=== PATIENT | female | born 1955 | race Caucasian/White ===

== ENCOUNTER 2018-03-10 14:01 | Inpatient (IN) | payer BC ==
--- OUTSIDE RECORDS SUMMARY | 2018-03-10 14:09 | XMS REPORT | Clinical Summary ---
:1955 Author Organization [facility] Address [address] [place] [address] Care Team Providers Name Role Phone Maddi Schwab MD Primary Care Provider Allergies No Known Allergies Current Medications Prescription Sig. Disp. Refills Start Date End Date Status [id number] Take 1 tablet by Active ein (CENTRUM SILVER mouth every morning. WOMEN) 8 mg iron-400 mcg-300 mcg tablet calcium Take 2 tablets by Active carbonate-vitamin D3 mouth daily with (CALCIUM 600 + D,3,) 600 breakfast. mg(1,500mg) -400 unit per tablet fish oil-dha-epa Take 2 capsules by Active 1,200144-216 mg capsule mouth every morning. Active Problems Problem Noted Date Syncope 03/26/2017 Encounters Date Type Specialty Care Team Description 03/26/2017 - Emergency General Surgery Ben Gibson MD Syncope, unspecified syncope type (Primary Dx); 03/28/2017 Piyush-Deepali Beasley, Hypokalemia Pepe Casey, DO after 03/09/2017 Immunizations Name Dates Previously Given Next Due Tdap 12/19/2016 Zoster 12/19/2016 Family History Medical History Relation Name Comments COPD Brother Cancer Father Lung & prostate Diabetes Father Hypertension Father Bone cancer Maternal Grandfather Bipolar disorder Mother Prostate cancer Paternal Grandfather Relation Name Status Comments Brother Father Maternal Grandfather (Age 74) Mother Alive Paternal Grandfather (Age 73) Social History Tobacco Use Types Packs/Day Years Used Date Never Smoker Alcohol Use Drinks/Week oz/Week Comments Yes 1 Cans of beer 0.6 Sex Assigned at Date Recorded Not on file Last Filed Vital Signs Vital Sign Reading Time Taken Blood Pressure 153/83 03/28/2017 6:59 AM COUNTER SERVER Pulse 82 03/28/2017 8:01 AM COUNTER SERVER Temperature 36.7 C (98.1 F) 03/28/2017 12:16 AM COUNTER SERVER Respiratory Rate 19 03/28/2017 6:59 AM COUNTER SERVER Oxygen Saturation 98% 03/28/2017 6:59 AM COUNTER SERVER Inhaled Oxygen Concentration - - Weight 68 kg (150 lb) 03/26/2017 5:00 PM COUNTER SERVER Height 157.5 cm (5' 2") 03/26/2017 5:00 PM COUNTER SERVER Body Mass Index 27.44 03/26/2017 5:00 PM COUNTER SERVER Plan of Treatment Health Maintenance Due Date Last Done Comments BREAST CANCER SCREENING 01/16/2006 COLON CANCER SCREENING 01/16/2006 SHINGRIX VACCINE (#1) 01/16/2006 INFLUENZA VACCINE 12/20/2017 CERVICAL CANCER SCREENING 12/21/2019 12/20/2016 ZOSTER VACCINE Completed 12/19/2016 Procedures Procedure Name Priority Date/Time Associated Comments Diagnosis ECHOCARDIOGRAM 2D Routine 03/27/2017 1:35 Results for this COMPLETE W MMODE PM COUNTER SERVER procedure are in SPECTRAL COLOR DOPPLER the results (03494) section. ZZESTIMATED GFR Routine 03/27/2017 9:52 Results for this AM COUNTER SERVER procedure are in the results section. BASIC METABOLIC PANEL Routine 03/27/2017 9:52 Results for this AM COUNTER SERVER procedure are in the results section. CT HEAD WO CONTRAST Routine 03/27/2017 9:02 Results for this AM COUNTER SERVER procedure are in the results section. SERUM ELECTROPHORESIS Routine 03/27/2017 1:14 Results for this AM COUNTER SERVER procedure are in the results section. KASHIF Routine 03/27/2017 1:14 Results for this AM COUNTER SERVER procedure are in the results section. HEMOGLOBIN A1C Routine 03/27/2017 1:14 Results for this AM COUNTER SERVER procedure are in the results section. THYROID STIMULATING Routine 03/27/2017 1:14 Results for this HORMONE AM COUNTER SERVER procedure are in the results section. TROPONIN Timed 03/27/2017 1:14 Results for this AM COUNTER SERVER procedure are in the results section. ECG ED PRELIMINARY Routine 03/27/2017 12:10 Results for this INTERPRETATION AM COUNTER SERVER procedure are in the results section. TROPONIN Timed 03/26/2017 9:32 Results for this PM COUNTER SERVER procedure are in the results section. URINALYSIS SCREEN AND STAT 03/26/2017 8:04 Results for this MICROSCOPY, WITH REFLEX PM COUNTER SERVER procedure are in TO CULTURE the results section. URINE CULTURE STAT 03/26/2017 8:04 Results for this PM COUNTER SERVER procedure are in the results section. XR CHEST 2 VW STAT 03/26/2017 6:45 Results for this PM COUNTER SERVER procedure are in the results section. ZZESTIMATED GFR STAT 03/26/2017 5:31 Results for this PM COUNTER SERVER procedure are in the results section. MAGNESIUM LEVEL STAT 03/26/2017 5:31 Results for this PM COUNTER SERVER procedure are in the results section. B NATRIURETIC PEPTIDE STAT 03/26/2017 5:31 Results for this PM COUNTER SERVER procedure are in the results section. TROPONIN STAT 03/26/2017 5:31 Results for this PM COUNTER SERVER procedure are in the results section. PARTIAL THROMBOPLASTIN STAT 03/26/2017 5:31 Results for this TIME (PTT) PM COUNTER SERVER procedure are in the results section. PROTHROMBIN TIME WITH STAT 03/26/2017 5:31 Results for this INR PM COUNTER SERVER procedure are in the results section. HC COMPLETE BLD COUNT STAT 03/26/2017 5:31 Results for this W/AUTO DIFF PM COUNTER SERVER procedure are in the results section. BASIC METABOLIC PANEL STAT 03/26/2017 5:31 Results for this PM COUNTER SERVER procedure are in the results section. ECG 12-LEAD STAT 03/26/2017 5:23 Results for this PM COUNTER SERVER procedure are in the results section. POC GLUCOSE Routine 03/26/2017 5:18 Results for this PM COUNTER SERVER procedure are in the results section. after 03/09/2017 Results Echocardiogram complete w contrast and 3D if needed (03/27/2017 1:35 PM) BSA 1.72 m2 [facility] Velocity Ratio (V1/V2) 0.75 m/s [facility] IVS,d 0.75 0.6 - 1.2 cm [facility] EF 59.45 % [facility] LVPWD,d 0.71 cm [facility] AoV Mean PG 3.44 mmHg [facility] AV LVOT peak gradient 3.68 mmHg [facility] MV valve area p 1/2 method 8.10 cm2 [facility] E/A ratio 1.28 [facility] E wave decelartion time 165.16 msec [facility] LVOT Diam,S 1.93 cm [facility] LVOT area 2.92 cm2 [facility] LVOT Vmax 0.96 m/s [facility] LVOT VTI 0.20 m [facility] AoV Peak PG 6.57 mmHg [facility] MV Peak E Basilio 0.78 m/s [facility] MV stenosis pressure 1/2 time 27.17 ms [facility] MV Peak A Basilio 0.61 m/s [facility] LV Vol,s A2C 26.04 mL [facility] LV Systolic Volume Index 15.14 mL/m2 [facility] LV Vol,d A2C 80.70 mL [facility] LV Diastolic Volume Index 46.92 mL/m2 [facility] AoV Area, Vmax 2.20 cm2 [facility] AoV Area, VTI 2.24 cm2 [facility] AoV Vmax 1.28 m/s [facility] LV,d 3.86 cm [facility] LV,s 2.66 cm [facility] LV Vol,d A4C 61.86 ml [facility] LV Vol,s A4C 26.45 ml [facility] RVSP (TR) 20.11 mmHg [facility] TR Vpeak 1.94 mm/s [facility] MV E A ratio 1.27 mmHg [facility] TR pk grad 15.11 mmHg [facility] RVSP 20.11 mmHg [facility] LV SYS VOL 26.09 ml [facility] LV TUCKER VOL 64.34 ml [facility] LA diam s 3.00 cm [facility] LA Vol MOD A4C 35.26 ml [facility] LV SV Teich 2D 38.25 ml [facility] LVOT SI 34.87 ml/m2 [facility] AoV Cusp sep 1.67 [facility] Aortic Root 3.10 [facility] AoV Vmn 0.89 [facility] IVS s 2D 1.32 [facility] LA Ao Ratio Mmode 0.98 [facility] D E excurs 2.30 [facility] E f slope 0.14 [facility] E prime lat 0.09 [facility] E minnie sept 0.07 [facility] PV acc T slope 6.80 [facility] PV AT 83.04 msec [facility] AoV VTI 0.26 m [facility] LV EF,A2C 67.73 % [facility] LV EF,A4C 57.24 % [facility] LV EF,BP 62.96 % [facility] [place],d A2C 6.72 cm [facility] [place],d A4C 7.47 cm [facility] [place],s A2C 5.62 cm [facility] [place],s A4C 5.05 cm [facility] LV SV,A2C 54.65 % [facility] LV SV,A4C 35.41 % [facility] LV Vol,d BP 74.30 ml [facility] LV Vol,s BP 27.52 nl [facility] LVOT Vmn 0.64 [facility] Pt Size 157.48 [facility] Pt Wt 68.04 [facility] LVOT mean grad 1.89 mmHg [facility] LVPW s PLAX 1.10 cm [facility] MV Decel slope 4.71 m/s2 [facility] Narrative Performed At The left ventricle chamber size is normal. [facility] Right ventricular size is normal. No pericardial effusion The pulmonic valve appears normal. No evidence of pulmonary valve stenosis. Left Ventricular ejection fraction is 55 - 60%. Performing Organization Address City/[facility] Phone Number [facility] [address] [place] [address] Estimated GFR (03/27/2017 9:52 AM)Only the most recent of2 resultswithin the time period is included. GFR Non Af Amer >90 mL/min/1.73 m2 [facility] DEPARTMENT OF PATHOLOGY AND GENOMIC MEDICINE GFR Af Amer >90 mL/min/1.73 m2 [facility] DEPARTMENT OF Comment: PATHOLOGY AND GENOMIC Chronic kidney disease: <60 mL/min/1.73m2 MEDICINE Kidney failure: <15 mL/min/1.73m2 The estimated GFR is calculated from the IDMS-traceable Modification of Diet in Renal Disease Equation. The accuracy of the calculation is poor when the creatinine is normal. Calculated values >90 mL/min/1.73m2 are not reported. This equation has not been validated in children (<18 years), women, the elderly (>70 years), or ethnic groups other than Caucasians and Americans. Specimen Plasma specimen Performing Organization Address City/[facility]/Zipcode Phone Number [facility] DEPARTMENT OF PATHOLOGY AND [address] [place] [address] [address] [place] [address] [facility] MEDICINE Basic metabolic panel (03/27/2017 9:52 AM)Only the most recent of2 resultswithin the time period is included. Sodium 141 135 - 148 mEq/L [facility] DEPARTMENT OF PATHOLOGY AND GENOMIC [facility] Potassium 3.5 3.5 - 5.0 mEq/L [facility] DEPARTMENT OF PATHOLOGY AND GENOMIC MEDICINE Chloride 105 98 - 112 mEq/L [facility] DEPARTMENT OF PATHOLOGY AND GENOMIC MEDICINE CO2 25 24 - 31 mEq/L [facility] DEPARTMENT OF PATHOLOGY AND GENOMIC MEDICINE Anion gap 11 7 - 15 mEq/L [facility] DEPARTMENT OF Comment: PATHOLOGY AND GENOMIC Starting from August , anion gap calculation MEDICINE no longer incorporates potassium. Please note the change. BUN 6 (L) 8 - 23 mg/dL [facility] DEPARTMENT OF PATHOLOGY AND GENOMIC MEDICINE Creatinine 0.6 0.5 - 0.9 mg/dL [facility] DEPARTMENT OF PATHOLOGY AND GENOMIC [facility] Glucose 123 (H) 65 - 99 mg/dL [facility] OF PATHOLOGY AND GENOMIC [facility] Calcium 8.9 8.8 - 10.2 mg/dL [facility] DEPARTMENT OF PATHOLOGY AND GENOMIC MEDICINE Specimen Plasma specimen Performing Organization Address City/State/Zipcode Phone Number [facility] DEPARTMENT OF PATHOLOGY AND [address] [place] [address] [facility] CT Head Wo Contrast (03/27/2017 9:02 AM) Narrative Performed At EXAMINATION:CT HEAD WO CONTRAST [facility] CT IMAGING WAS PERFORMED WITH ITERATIVE RECONSTRUCTION TECHNIQUE AND/OR AUTOMATED EXPOSURE CONTROL TO REDUCE RADIATION DOSE. CLINICAL HISTORY:syncope COMPARISON:None. FINDINGS: 1.There is no acute abnormality demonstrated. Specifically there is no hemorrhage, mass effect or acute infarction. 2. There are minimal if any nonspecific cerebral white matter microvascular changes. There is mild to moderate cerebral cortical volume loss and cerebellar volume loss. There is minimal atherosclerotic calcification the distal internal carotid arteries. 3.There is minimal mucosal thickening in the ethmoid and maxillary sinus IMPRESSION: No acute abnormality. [facility]-[id number] Procedure Note Interface, Radiology Results Incoming - 03/27/2017 9:37 AM COUNTER SERVER EXAMINATION: CT HEAD WO CONTRAST CT IMAGING WAS PERFORMED WITH ITERATIVE RECONSTRUCTION TECHNIQUE AND/OR AUTOMATED EXPOSURE CONTROL TO REDUCE RADIATION DOSE. CLINICAL HISTORY: syncope COMPARISON: None. FINDINGS: 1. There is no acute abnormality demonstrated. Specifically there is no hemorrhage, mass effect or acute infarction. 2. There are minimal if any nonspecific cerebral white matter microvascular changes. There is mild to moderate cerebral cortical volume loss and cerebellar volume loss. There is minimal atherosclerotic calcification the distal internal carotid arteries. 3. There is minimal mucosal thickening in the ethmoid and maxillary sinus IMPRESSION: No acute abnormality. [facility]-[id number] Performing Organization Address City/[facility]/Zipcode Phone Number [facility] [address] [place] [address] Troponin (03/27/2017 1:14 AM)Only the most recent of3 resultswithin the time period is included. Troponin <0.300 0.000 - 0.300 ng/mL [facility] DEPARTMENT OF Comment: PATHOLOGY AND GENOMIC 0.30 - 1.49 ng/mlMay indicate increased risk of acute MEDICINE coronary syndrome. >=1.5 ng/mlConsistent with acute myocardial infarction. The diagnostic value of a single normal or non-diagnostic result is questionable.Serial samples at 2-6 hour intervals are required to rule out acute myocardial injury. Specimen Plasma specimen Performing Organization Address [facility] Phone Number [facility] DEPARTMENT OF PATHOLOGY AND [address] [place] [address] [place] [address] [facility] KASHIF (03/27/2017 1:14 AM) KASHIF screen Not Detected Not-Detected [facility] DEPARTMENT OF PATHOLOGY AND GENOMIC MEDICINE Specimen Blood Performing Organization Address [facility] Phone Number [facility] DEPARTMENT OF PATHOLOGY AND [address] [place] [address] [facility] Thyroid stimulating hormone (03/27/2017 1:14 AM) TSH 4.00 0.27 - 4.20 uIU/mL [facility] DEPARTMENT OF PATHOLOGY AND GENOMIC MEDICINE Specimen Plasma specimen Performing Organization Address [facility] Phone Number [facility] DEPARTMENT PATHOLOGY AND [address] [place] [address] [place] [address] [facility] Serum electrophoresis (03/27/2017 1:14 AM) Protein 6.6 6.3 - 8.3 g/dL [facility] DEPARTMENT OF Comment: PATHOLOGY AND GENOMIC [place] 4.6-7.0 g/dL MEDICINE 1 week 4.4-7.6 g/dL 7 months-1year5.1-7.3 g/dL 1-2 years5.6-7.5 g/dL >3 years6.0-8.0 g/dL 18-150 6.3-8.3 g/dL SPE albumin 4.25 4.00 - 5.30 g/dL [facility] DEPARTMENT OF PATHOLOGY AND GENOMIC MEDICINE SPE alpha 1 0.09 (L) 0.10 - 0.25 g/dL [facility] DEPARTMENT OF PATHOLOGY AND GENOMIC MEDICINE SPE alpha 2 0.73 0.58 - 0.84 g/dL [facility] DEPARTMENT OF PATHOLOGY AND GENOMIC MEDICINE SPE beta 0.86 0.50 - 1.10 g/dL [facility] DEPARTMENT OF PATHOLOGY AND GENOMIC MEDICINE SPE gamma 0.67 0.60 - 1.30 g/dL [facility] DEPARTMENT OF PATHOLOGY AND GENOMIC MEDICINE SPE extended See CommentComment: An [facility] DEPARTMENT OF interpretation essentially normal PATHOLOGY AND GENOMIC serum protein study. MEDICINE SPE interpretation See CommentComment: [facility] DEPARTMENT OF José Miguel Garcia MD; PATHOLOGY AND GENOMIC Keshawn Gallagher, PhD; MEDICINE Jessica Bennett, PhD; Mayito Nava MD, PhD Specimen Serum Performing Organization Address City/[facility] Phone Number [facility] DEPARTMENT OF PATHOLOGY AND [address] [place] [address] [facility] MEDICINE Hemoglobin A1c (03/27/2017 1:14 AM) Hemoglobin A1C 5.5 4.0 - 6.0 % [facility] DEPARTMENT OF PATHOLOGY Comment: AND GENOMIC MEDICINE Less than 6% - Goal of therapy for Type II Diabetes Less than 7%-Goal of therapy for Type I Diabetes Less than 8%-Acceptable control for Type I or Type II Diabetes Greater than 8%-Unacceptable control; action indicated. (ADA94) Specimen Blood Performing Organization Address City/State/Zipcode Phone Number [facility] DEPARTMENT OF PATHOLOGY AND [address] [place] [address] [facility] ECG ED Preliminary Interpretation - NOT AN ORDER (03/27/2017 12:10 AM) Narrative Performed At Ben Gibson MD 03/27/2017 12:10 AM ECG ED Preliminary Interpretation - Not an Order Performed by: BEN GIBSON Authorized by: BEN GIBSON ECG reviewed by ED Physician in the absence of a slot key person: yes Interpretation: Interpretation: normal Rate: ECG rate:75 ECG rate assessment: normal Rhythm: Rhythm: sinus rhythm Ectopy: Ectopy: none QRS: QRS axis:Normal Conduction: Conduction: normal ST segments: ST segments:Normal T waves: T waves: normal Urinalysis screen and microscopy, with reflex to culture (03/26/2017 8:04 PM) Specimen site Clean catch [facility] DEPARTMENT OF PATHOLOGY AND GENOMIC MEDICINE Color, UA Colorless [facility] DEPARTMENT OF PATHOLOGY AND GENOMIC MEDICINE Appearance, UA Clear [facility] DEPARTMENT OF PATHOLOGY AND GENOMIC MEDICINE Specific gravity, UA 1.006 1.001 - 1.035 [facility] DEPARTMENT OF PATHOLOGY AND GENOMIC MEDICINE pH, UA 6.0 5.0 - 8.5 [facility] DEPARTMENT OF PATHOLOGY AND GENOMIC MEDICINE Protein, UA Negative Negative [facility] DEPARTMENT OF PATHOLOGY AND GENOMIC MEDICINE Glucose, UA 1+ (A) Negative [facility] DEPARTMENT OF PATHOLOGY AND GENOMIC MEDICINE Ketones, UA Negative Negative [facility] DEPARTMENT OF PATHOLOGY AND GENOMIC MEDICINE Bilirubin, UA Negative Negative [facility] DEPARTMENT OF PATHOLOGY AND GENOMIC MEDICINE Blood, UA Negative Negative [facility] DEPARTMENT OF PATHOLOGY AND GENOMIC MEDICINE Nitrite, UA Negative Negative [facility] DEPARTMENT OF PATHOLOGY AND GENOMIC MEDICINE Urobilinogen, UA Negative <2.0 [facility] DEPARTMENT OF PATHOLOGY AND GENOMIC MEDICINE Leukocyte esterase, UA Negative Negative [facility] DEPARTMENT OF PATHOLOGY AND GENOMIC MEDICINE Epithelial cells, UA Few /HPF [facility] DEPARTMENT OF PATHOLOGY AND GENOMIC MEDICINE WBC, UA 0-5 0 - 4 /HPF [facility] DEPARTMENT OF PATHOLOGY AND GENOMIC MEDICINE RBC, UA 0-5 0 - 2 /HPF [facility] DEPARTMENT OF PATHOLOGY AND GENOMIC MEDICINE Bacteria, UA None seen None seen [facility] DEPARTMENT OF PATHOLOGY AND GENOMIC MEDICINE Yeast, UA None seen [facility] DEPARTMENT OF PATHOLOGY AND GENOMIC MEDICINE Yeast with pseudohyphae, UA None seen [facility] DEPARTMENT OF PATHOLOGY AND GENOMIC MEDICINE Specimen Urine Performing Organization Address [facility] Phone Number [facility] DEPARTMENT OF PATHOLOGY AND [id number] [place] [address] [place] [address] [facility] MEDICINE Urine culture (03/26/2017 8:04 PM) Urine culture SEE COMMENTComment: Bacteriuria [facility] DEPARTMENT OF PATHOLOGY screen negative. AND GENOMIC MEDICINE Specimen Urine Performing Organization Address [facility] Phone Number [facility] DEPARTMENT OF PATHOLOGY AND [id number] [place] [address] [place] [address] [facility] XR Chest 2 Vw (03/26/2017 6:45 PM) Narrative Performed At EXAMINATION:XR CHEST 2 VW HM [facility] CLINICAL HISTORY:syncope COMPARISON:None IMPRESSION: Heart, mediastinum and lung davis are normal. [id number] Procedure Note Hm Interface, Radiology Results Incoming - 03/26/2017 6:49 PM COUNTER SERVER EXAMINATION: XR CHEST 2 VW CLINICAL HISTORY: syncope COMPARISON: None IMPRESSION: Heart, mediastinum and lung davis are normal. [id number] Performing Organization Address [facility] Phone Number [facility] [address] [place] [address] Partial thromboplastin time, activated (03/26/2017 5:31 PM) PTT 26.3 23.0 - 36.0 sec [facility] DEPARTMENT OF Comment: PATHOLOGY AND GENOMIC PTT therapeutic range for unfractionated heparin is MEDICINE 61.0-112.0 seconds which corresponds to Anti-Xa 0.3-0.7 U/ml. Specimen Blood Performing Organization Address [facility] Phone Number [facility] DEPARTMENT OF PATHOLOGY AND [address] [place] [address] [place] [address] [facility] Prothrombin time with INR (03/26/2017 5:31 PM) Prothrombin time 12.1 12.0 - 15.0 sec [facility] DEPARTMENT OF PATHOLOGY AND GENOMIC MEDICINE INR 0.9 [facility] DEPARTMENT OF Comment: PATHOLOGY AND GENOMIC The International Normalized Ratio (INR) is a therapeutic MEDICINE monitoring tool for patients who are stable on oral anticoagulant therapy. An INR of 2.0-3.0 is suggested for deep vein thrombosis/pulmonary embolism. Specimen Blood Performing Organization Address [facility] Phone Number [facility] PATHOLOGY AND [address] [place] [address] [place] [address] [facility] CBC with platelet and differential (03/26/2017 5:31 PM) WBC 7.33 4.50 - 11.00 k/uL [facility] DEPARTMENT OF PATHOLOGY AND GENOMIC MEDICINE RBC 4.78 4.20 - 5.50 m/uL [facility] DEPARTMENT OF PATHOLOGY AND GENOMIC MEDICINE HGB 13.1 12.0 - 16.0 g/dL [facility] DEPARTMENT OF PATHOLOGY AND GENOMIC MEDICINE HCT 39.5 37.0 - 47.0 % [facility] DEPARTMENT OF PATHOLOGY AND GENOMIC MEDICINE MCV 82.6 82.0 - 100.0 fL [facility] DEPARTMENT OF PATHOLOGY AND GENOMIC MEDICINE MCH 27.4 27.0 - 34.0 pg [facility] DEPARTMENT OF PATHOLOGY AND GENOMIC MEDICINE MCHC 33.2 31.0 - 37.0 g/dL [facility] DEPARTMENT OF PATHOLOGY AND GENOMIC MEDICINE RDW - SD 41.8 37.0 - 55.0 fL [facility] DEPARTMENT OF PATHOLOGY AND GENOMIC MEDICINE MPV 10.3 8.8 - 13.2 fL [facility] DEPARTMENT OF PATHOLOGY AND GENOMIC MEDICINE Platelet count 258 150 - 400 k/uL [facility] DEPARTMENT OF PATHOLOGY AND GENOMIC MEDICINE Nucleated RBC 0.00 /100 WBC [facility] DEPARTMENT OF PATHOLOGY AND GENOMIC MEDICINE Neutrophils 57.8 39.0 - 69.0 % [facility] DEPARTMENT OF PATHOLOGY AND GENOMIC MEDICINE Lymphocytes 30.4 25.0 - 45.0 % [facility] DEPARTMENT OF PATHOLOGY AND GENOMIC MEDICINE Monocytes 9.3 0.0 - 10.0 % [facility] DEPARTMENT OF PATHOLOGY AND GENOMIC MEDICINE Eosinophils 1.5 0.0 - 5.0 % [facility] DEPARTMENT OF PATHOLOGY AND GENOMIC MEDICINE Basophils 0.7 0.0 - 1.0 % [facility] DEPARTMENT OF PATHOLOGY AND GENOMIC MEDICINE Immature granulocytes 0.3Comment: 0.0 - 1.0 % [facility] DEPARTMENT OF "Immature PATHOLOGY AND GENOMIC granulocytes" MEDICINE (promyelocytes, myelocytes, metamyelocytes) Specimen Blood Performing Organization Address [facility] Phone Number [facility] DEPARTMENT OF PATHOLOGY AND [address] [place] [address] B natriuretic peptide (03/26/2017 5:31 PM) BNP 30 0 - 100 pg/mL [facility] DEPARTMENT OF PATHOLOGY AND GENOMIC MEDICINE Specimen Blood Performing Organization Address [facility] Phone Number [facility] DEPARTMENT OF PATHOLOGY AND [address] [place] [address] Magnesium level (03/26/2017 5:31 PM) Magnesium 2.0 1.6 - 2.4 mg/dL [facility] DEPARTMENT OF PATHOLOGY AND GENOMIC MEDICINE Specimen Plasma specimen Performing Organization Address [facility] Phone Number [facility] DEPARTMENT OF PATHOLOGY AND [address] [place] [address] ECG 12 lead (03/26/2017 5:23 PM) Ventricular rate 75 [facility] MUSE Atrial rate 75 [facility] MUSE FL interval 146 [facility] QRSD interval 92 [facility] QT interval 400 [facility] QTC interval 446 [facility] P axis 1 27 [facility] QRS axis 1 31 [facility] T wave axis 28 [facility] EKG impression Normal sinus rhythm-Normal ECG-No previous [facility] ECGs available- Performing Organization Address City/State/Zipcode Phone Number [facility] [address] [place] [address] POC glucose (03/26/2017 5:18 PM) POC glucose 131 (H) 65 - 99 mg/dL [facility] DEPARTMENT OF PATHOLOGY AND Comment: GENOMIC MEDICINE Meter ID: [id number] Porter Head: Claus Morse Performing Organization Address City/State/Zipcode Phone Number [facility] DEPARTMENT OF PATHOLOGY AND [address] [place] [address] GENOMIC MEDICINE after 03/09/2017 Insurance Payer Benefit Plan / Group Subscriber ID Type Phone Address BCBS BCBS CHOICE PPO/FEDERAL EMPL PPO xxxxxxxxxxxxxx PPO Home: [address] [phone] [place] [id number] [employer] Institutional Self 1955 Home: [address] [phone] [place] [id number]
--- OUTSIDE RECORDS SUMMARY | 2018-03-10 14:09 | XMS REPORT ---
:1955 Author Organization [facility] Address [address] [place] [address] [address]. [address] [place] [address] Care Team Providers Name Role Phone JADEN COATES Unavailable Unavailable Problems This patient has no known problems. Allergies, Adverse Reactions, Alerts This patient has no known allergies or adverse reactions. Medications This patient has no known medications. Encounters Start End Encounter Admission Attending Care Care Encounter Date/Time Date/Time Type Type Clinicians Facility Department ID 2016-12-27 2016-12-27 Outpatient C YOEL COATES USI [id number] 01:50:00 23:59:00 JADEN OSBORNE
[2018-03-10] MEDS ORDERED: ONDANSETRON 4 MG/2 ML VIAL ONE (15:29)
[2018-03-10] MEDS ORDERED: NA CHLORIDE 0.9% 1,000 ML ONE (15:29)
[2018-03-10] MEDS ORDERED: MORPHINE 4 MG/ML SYR ONE (15:29)
[2018-03-10 15:52] LABS: Absolute Lymphocytes (CBC) 1.5 K/uL (0.7-4.9); Absolute Monocytes 0.4 K/uL (0.1-1.3); Basophils % 0.4 % (0-1.3); Eosinophils % 0.2 % (0-4.4); Hematocrit 39.9 % (36.0-45.0); Lymphocytes % 12.6 % (15.3-44.8); MCH 27.6 pg (27.0-35.0); MCV 83.7 fL (80-100); MPV 9.1 fL (7.6-11.3); Monocytes % 3.2 % (3.3-12.3); RBC Red Blood Cell Count 4.76 M/uL (3.86-4.86)
[2018-03-10 15:54] LABS: Protime INR 0.97
[2018-03-10 16:12] LABS: ALT/SGPT 32 U/L (12-78); AST/SGOT 22 U/L (15-37); Alkaline Phosphatase 113 U/L (45-117); BUN Blood Urea Nitrogen 11 mg/dL (7-18); Bicarbonate 27 mmol/L (21-32); Bilirubin Direct < 0.1 mg/dL (0-0.2); Bilirubin Total 0.4 mg/dL (0.2-1.0); Glucose Level 143 mg/dL (74-106); Lipase 142 U/L (73-393); Magnesium 2.1 mg/dL (1.8-2.4); NT PRO-BNP 37 pg/mL (<125); Potassium 3.9 mmol/L (3.5-5.1); Protein, Total 7.9 g/dL (6.4-8.2); Sodium Level 139 mmol/L (136-145); Troponin (Emerg Dept Use Only) < 0.02 ng/mL (0.0-0.045)
--- NOTE | 2018-03-10 16:46 | RAD REPORT ---
EXAM DESCRIPTION: Tim Single View03/10/2018 3:53 pm CLINICAL HISTORY: abd pain COMPARISON: none FINDINGS: The lungs appear clear of acute infiltrate. The heart is normal size IMPRESSION: No acute abnormalities displayed
--- NOTE | 2018-03-10 16:46 | RAD REPORT ---
EXAM DESCRIPTION: CT - Abdomen Pelvis W Contrast - 03/10/2018 4:35 pm CLINICAL HISTORY: Abdominal pain/upper abdominal pain COMPARISON: August 2016 TECHNIQUE: Computed axial tomography of the abdomen pelvis was obtained. 100 cc Isovue-300 was admin istered intravenously. Oral contrast was not requested which limits evaluation of bowel. All CT scans are performed using dose optimization technique as appropriate and may include automated exposure control or mA/KV adjustment according to patient size. FINDINGS: Fatty infiltration liver is present. Gallbladder is been removed Spleen, pancreas, adrenal and kidneys appear unremarkable. There is no evidence of diverticulitis. The appendix is normal An adnexal mass is not seen IMPRESSION: No acute abnormality is displayed.
[2018-03-10] MEDS ORDERED: FENTANYL CITR 100 MCG/2 ML ONE (16:53)
[2018-03-10 18:19] LABS: Urine Blood TRACE (NEG); Urine Glucose NEGATIVE (NEG); Urine Protein NEGATIVE (NEG); Urine Specific Gravity 1.015 (1.005-1.030); Urine pH 7.5 (5.0-7.0)
[2018-03-10] MEDS ORDERED: ACETAMINOPHEN 500 MG TAB PO PRN (18:29)
[2018-03-10] MEDS ORDERED: MAGNESIUM HYDROXIDE 8% 30 ML PO PRN (18:29)
--- NOTE | 2018-03-10 18:33 | ER ---
Nurse's Notes [facility] Name: Calista Duggan Age: 63 yrs Sex: Female : 1955 Arrival Date: 03/10/2018 Time: 14:04 Bed 16 Private MD: Diagnosis: Abdominal and pelvic pain Presentation: 03/10 14:09 Presenting complaint: Patient states: "Last night my arm was hurting really bad, but I aj1 figured I pulled a muscle because I'm always lifting things and I felt really full and then this morning I felt better, but after I drank some coffee the pain has gotten worse and worse. I tried Pepto and Gingerale but it didn't help" Reports upper abdominal pain that radiates to the back. Reports N/V. Denies diarrhea. Transition of care: patient was not received from another setting of care. Onset of symptoms was March 09, 2018. Risk Assessment: Do you want to hurt yourself or someone else? Patient reports no desire to harm self or others. Initial Sepsis Screen: Does the patient meet any 2 criteria? No. Patient's initial sepsis screen is negative. Does the patient have a suspected source of infection? Yes: Acute abdominal pain. Care prior to arrival: None. 14:09 Method Of Arrival: Ambulatory aj1 14:09 Acuity: RUPA 3 aj1 Triage Assessment: 14:15 General: Appears in no apparent distress. uncomfortable, Behavior is calm, cooperative, aj1 appropriate for age. Pain: Complains of pain in right upper quadrant and left upper quadrant Pain radiates to back Pain currently is 9 out of 10 on a pain scale. Neuro: Level of Consciousness is awake, alert, obeys commands. Cardiovascular: Patient's skin is warm and dry. Respiratory: Airway is patent Respiratory effort is even, unlabored, Respiratory pattern is regular, symmetrical. GI: Reports upper abdominal pain. Historical: - Allergies: 14:14 No Known Allergies; aj1 - Home Meds: 14:14 multivitamin oral oral [Active]; Calcium Carbonate Oral [Active]; Fish Oil oral oral aj1 [Active]; - PMHx: 14:15 Diverticulitis; aj1 - PSHx: 14:14 None; aj1 - Immunization history:: Flu vaccine is not up to date. - Social history:: Smoking status: Patient/guardian denies using tobacco. - Ebola Screening: : Patient denies travel to an Ebola-affected area in the 21 days before illness onset. Screenin:20 Abuse screen: Denies threats or abuse. Nutritional screening: No deficits noted. rb1 Tuberculosis screening: No symptoms or risk factors identified. Fall Risk None identified. Assessment: 14:20 General: Appears uncomfortable, Behavior is calm, cooperative, Reports chills for fever rb1 for. Pain: Complains of pain in epigastric area, right upper quadrant and left upper quadrant Pain radiates to back Pain currently is 9 out of 10 on a pain scale. Pain: Complains of pain in left arm Neuro: Level of Consciousness is awake, alert, obeys commands, Oriented to person, place, time, situation. Cardiovascular: Capillary refill < 3 seconds is brisk in bilateral fingers. Respiratory: Airway is patent Respiratory effort is even, unlabored, Respiratory pattern is regular, symmetrical. GI: Bowel sounds present X 4 quads. Abd is soft Abdomen is tender to palpation in epigastric area Reports nausea, vomiting, since this morning. : No signs and/or symptoms were reported regarding the genitourinary system. Derm: Skin is pink, warm \\T\\ dry. 15:20 Reassessment: Patient appears in no apparent distress at this time. No changes from rb1 previously documented assessment. 16:10 Reassessment: Patient appears in no apparent distress at this time. Patient and/or em family updated on plan of care and expected duration. Pain level reassessed. Patient is alert, oriented x 3, equal unlabored respirations, skin warm/dry/pink. Patient states feeling better. Patient states symptoms have improved. 17:12 Reassessment: Patient appears in no apparent distress at this time. Patient and/or em family updated on plan of care and expected duration. Pain level reassessed. Patient is alert, oriented x 3, equal unlabored respirations, skin warm/dry/pink. rates pain 2/10 Patient states feeling better. 18:14 Reassessment: Patient appears in no apparent distress at this time. Patient and/or em family updated on plan of care and expected duration. Pain level reassessed. Patient is alert, oriented x 3, equal unlabored respirations, skin warm/dry/pink. rates pain 8/10, provider notified, new medication orders received. 19:02 Reassessment: Patient appears in no apparent distress at this time. Patient and/or jb4 family updated on plan of care and expected duration. Pain level reassessed. Patient is alert, oriented x 3, equal unlabored respirations, skin warm/dry/pink. reports decreased pain to 2/10. Patient states feeling better. 19:43 Reassessment: Patient appears in no apparent distress at this time. Patient and/or jb4 family updated on plan of care and expected duration. Pain level reassessed. Patient is alert, oriented x 3, equal unlabored respirations, skin warm/dry/pink. Report called To LUIZA Quintanilla. Vital Signs: 14:15 BP 141 / 80; Pulse 59; Resp 20; Temp 97.2; Pulse Ox 100% on R/A; Weight 64.86 kg (R); aj1 Height 5 ft. 2 in. (157.48 cm) (R); Pain 9/10; 15:43 BP 143 / 67; Pulse 54; Resp 19; Pulse Ox 98% on R/A; rb1 16:49 BP 168 / 91; Pulse 58; Resp 16; Pulse Ox 99% on R/A; em 18:19 BP 147 / 74; Pulse 68; Resp 16; Pulse Ox 96% on R/A; Pain 8/10; em 19:00 BP 144 / 76; Pulse 66; Resp 18; Pulse Ox 97% on R/A; jb4 19:43 BP 153 / 80; Pulse 71; Resp 18; Pulse Ox 98% on R/A; jb4 14:15 Body Mass Index 26.15 (64.86 kg, 157.48 cm) aj1 ED Course: 14:04 Patient arrived in ED. tw3 14:13 Triage completed. aj1 14:15 Arm band placed on Patient placed in an exam room. aj1 14:20 Patient has correct armband on for positive identification. Placed in gown. Bed in low rb1 position. Call light in reach. Side rails up X 1. lumber cutter on. Pulse ox on. NIBP on. Warm blanket given. 14:57 Casa Perry MD is Attending Physician. kdr 15:17 Tawnya Mesa, LUIZA is Primary Nurse. rb1 15:35 Inserted saline lock: 22 gauge in right antecubital area, using aseptic technique. rb1 Blood collected. 15:53 Radiology exam delayed due to lab results not completed at this time. (BUN/Creatinine). cw1 15:53 XRAY Chest (1 view) In Process Unspecified. EDMS 15:53 EKG done, by ED staff, reviewed by Casa Perry MD. dh3 16:[address] via wheelchair. nj 16:30 CT completed. Patient moved back from CT. nj 16:35 CT Abd/Pelvis - W/Contrast In Process Unspecified. EDMS 18:13 Urine collected: clean catch specimen, cloudy. dh3 18:31 Rosy Black MD is Hospitalizing Provider. kdr 20:00 No provider procedures requiring assistance completed. Patient admitted, IV remains in jb4 place. Administered Medications: 15:35 Drug: morphine 4 mg Route: IVP; Site: right antecubital; rb1 16:30 Follow up: Response: No adverse reaction; Pain is unchanged, physician notified em 15:35 Drug: Zofran 4 mg Route: IVP; Site: right antecubital; rb1 16:30 Follow up: Response: No adverse reaction em 15:35 Drug: NS 0.9% 1000 ml Route: IV; Rate: 1 bolus; Site: right antecubital; rb1 16:36 Follow up: IV Status: Completed infusion; IV Intake: 1000ml em 16:55 Drug: fentaNYL (PF) 50 mcg Route: IVP; Site: right antecubital; ss 17:19 Follow up: Response: No adverse reaction; Pain is decreased em 18:17 Not Given (Duplicate Order): fentaNYL (PF) 50 mcg IVP once em 18:28 Drug: fentaNYL (PF) 50 mcg Route: IVP; Site: right antecubital; em 19:42 Follow up: Response: No adverse reaction; Pain is decreased jb4 Intake: 16:36 IV: 1000ml; Total: 1000ml. em Outcome: 18:32 Decision to Hospitalize by Provider. kdr 20:00 Admitted to Med/surg accompanied by tech, via wheelchair, room 221, with chart, Report jb4 called to LUIZA Quintanilla 20:00 Condition: stable 20:00 Instructed on the need for admit, Demonstrated understanding of instructions. 20:03 Patient left the ED. ak1 Signatures: Dispatcher [employer] EDSera Martinez RN RN aj1 Casa Perry MD MD kdr Munoz, Edgar, PROTECTOR PLATE ATTACHER PROTECTOR PLATE ATTACHER Lorrie Molina, RN RN ss Sheeba, Celsa cw1 Shital Mccarthy, RN RN ak1 Tawnya Mesa, RN RN rb1 Leon Brown RN RN jb4 Lars Coello, Gloria 3 Eliseo, Rozina 3
--- NOTE | 2018-03-10 18:33 | EDPHYS ---
Physician Documentation [facility] Name: Calista Duggan Age: 63 yrs Sex: Female : 1955 Arrival Date: 03/10/2018 Time: 14:04 Bed 16 Private MD: ED Physician Casa Perry HPI: 03/10 15:32 This 63 yrs old Female presents to ER via Ambulatory with complaints of kdr Abdominal Pain, Arm Pain. 15:33 Yesterday and last night the patient states that she had excruciating left shoulder and kdr left arm pain that was persistent and shooting down her arm. This morning she began to have pain broadly across her abdomen radiating around to her back. She has had diverticulitis before and this is similar but more severe. She had a normal BM first this this morning and then two subsequent BM that have become progressively more loose. Onset: The symptoms/episode began/occurred gradually, yesterday. Severity of symptoms: At their worst the symptoms were moderate this morning, in the emergency department the symptoms are unchanged. The patient has not experienced similar symptoms in the past. The patient has not recently seen a physician. Historical: - Allergies: 14:14 No Known Allergies; aj1 - Home Meds: 14:14 multivitamin oral oral [Active]; Calcium Carbonate Oral [Active]; Fish Oil oral oral aj1 [Active]; - PMHx: 14:15 Diverticulitis; aj1 - PSHx: 14:14 None; aj1 - Immunization history:: Flu vaccine is not up to date. - Social history:: Smoking status: Patient/guardian denies using tobacco. - Ebola Screening: : Patient denies travel to an Ebola-affected area in the 21 days before illness onset. ROS: 15:33 Constitutional: Negative for fever, chills, and weight loss, Eyes: Negative for injury, kdr pain, redness, and discharge, ENT: Negative for injury, pain, and discharge, Neck: Negative for injury, pain, and swelling, Cardiovascular: Negative for chest pain, palpitations, and edema, Respiratory: Negative for shortness of breath, cough, wheezing, and pleuritic chest pain, Back: Negative for injury and pain, : Negative for injury, bleeding, discharge, and swelling, MS/Extremity: Negative for injury and deformity, Skin: Negative for injury, rash, and discoloration, Neuro: Negative for headache, weakness, numbness, tingling, and seizure activity. Psych: Negative for depression, anxiety, suicide ideation, homicidal ideation, and hallucinations, Allergy/Immunology: Negative for hives, rash, and allergies, Endocrine: Negative for neck swelling, polydipsia, polyuria, polyphagia, and marked weight changes, Hematologic/Lymphatic: Negative for swollen nodes, abnormal bleeding, and unusual bruising. 15:33 Abdomen/GI: Positive for abdominal pain, nausea, vomiting, and diarrhea, Negative for constipation, abdominal distension, anorexia, dysphagia, hematemesis, black/tarry stool, rectal pain, rectal bleeding, bowel incontinence. Exam: 15:33 Constitutional: This is a well developed, well nourished patient who is awake, alert, kdr and in mild to moderate distress. Head/Face: Normocephalic, atraumatic. Eyes: Pupils equal round and reactive to light, extra-ocular motions intact. Lids and lashes normal. Conjunctiva and sclera are non-icteric and not injected. Cornea within normal limits. Periorbital areas with no swelling, redness, or edema. Neck: Trachea midline, no thyromegaly or masses palpated, and no cervical lymphadenopathy. Supple, full range of motion without nuchal rigidity, or vertebral point tenderness. No Meningismus. Chest/axilla: Normal chest wall appearance and motion. Nontender with no deformity. No lesions are appreciated. Cardiovascular: Regular rate and rhythm with a normal S1 and S2. No gallops, murmurs, or rubs. Normal PMI, no JVD. No pulse deficits. Respiratory: Lungs have equal breath sounds bilaterally, clear to auscultation and percussion. No rales, rhonchi or wheezes noted. No increased work of breathing, no retractions or nasal flaring. Back: No spinal tenderness. No costovertebral tenderness. Full range of motion. Skin: Warm, dry with normal turgor. Normal color with no rashes, no lesions, and no evidence of cellulitis. MS/ Extremity: Pulses equal, no cyanosis. Neurovascular intact. Full, normal range of motion. Neuro: Awake and alert, GCS 15, oriented to person, place, time, and situation. Cranial nerves II-XII grossly intact. Motor strength 5/5 in all extremities. Sensory grossly intact. Cerebellar exam normal. Normal gait. Psych: Awake, alert, with orientation to person, place and time. Behavior, mood, and affect are within normal limits. 15:33 Abdomen/GI: Inspection: abdomen appears normal, obese Bowel sounds: active, diminished, in all quadrants. Vital Signs: 14:15 BP 141 / 80; Pulse 59; Resp 20; Temp 97.2; Pulse Ox 100% on R/A; Weight 64.86 kg (R); aj1 Height 5 ft. 2 in. (157.48 cm) (R); Pain 9/10; 15:43 BP 143 / 67; Pulse 54; Resp 19; Pulse Ox 98% on R/A; rb1 16:49 BP 168 / 91; Pulse 58; Resp 16; Pulse Ox 99% on R/A; em 18:19 BP 147 / 74; Pulse 68; Resp 16; Pulse Ox 96% on R/A; Pain 8/10; em 19:00 BP 144 / 76; Pulse 66; Resp 18; Pulse Ox 97% on R/A; jb4 19:43 BP 153 / 80; Pulse 71; Resp 18; Pulse Ox 98% on R/A; jb4 14:15 Body Mass Index 26.15 (64.86 kg, 157.48 cm) aj1 MDM: 15:33 Data reviewed: vital signs, nurses notes, lab test result(s), radiologic studies. kdr Counseling: I had a detailed discussion with the patient and/or guardian regarding: the historical points, exam findings, and any diagnostic results supporting the discharge/admit diagnosis, lab results, radiology results. 18:32 Patient medically screened. kdr 03/10 15:16 Order name: Basic Metabolic Panel; Complete Time: 16:43 kdr 03/10 15:16 Order name: CBC with Diff; Complete Time: 16:43 kdr 03/10 15:16 Order name: Creatinine for Radiology; Complete Time: 16:43 kdr 03/10 15:16 Order name: Hepatic Function; Complete Time: 16:43 kdr 03/10 15:16 Order name: Lipase; Complete Time: 16:43 kdr 03/10 15:16 Order name: Magnesium; Complete Time: 16:43 kdr 03/10 15:16 Order name: NT PRO-BNP; Complete Time: 16:43 kdr 03/10 15:16 Order name: PT-INR; Complete Time: 16:43 kdr 03/10 15:16 Order name: Troponin (emerg Dept Use Only); Complete Time: 16:43 kdr 03/10 18:15 Order name: Urine Dipstick--Ancillary (enter results) em1 03/10 18:15 Order name: Urine --Ancillary (enter results) em1 03/10 18:33 Order name: CBC with Automated Diff EDMS 03/10 18:33 Order name: CBC with Automated Diff EDMS 03/10 18:33 Order name: Comprehensive Metabolic Panel EDMS 03/10 15:16 Order name: IV Saline Lock; Complete Time: 15:41 kdr 03/10 15:16 Order name: Labs collected and sent; Complete Time: 15:41 kdr 03/10 15:16 Order name: XRAY Chest (1 view); Complete Time: 16:57 kdr 03/10 15:16 Order name: EKG; Complete Time: 15:17 kdr 03/10 15:16 Order name: Cardiac monitoring; Complete Time: 15:53 kdr 03/10 15:16 Order name: EKG - Nurse/Tech; Complete Time: 15:54 kdr 03/10 15:16 Order name: O2 Per Protocol; Complete Time: 15:41 kdr 03/10 15:16 Order name: CT Abd/Pelvis - W/Contrast; Complete Time: 16:57 kdr 03/10 18:33 Order name: Clear Liquid EDMS 03/10 18:33 Order name: Comprehensive Metabolic Panel EDMS 03/10 15:16 Order name: O2 Sat Monitoring; Complete Time: 15:41 kdr 03/10 18:15 Order name: Urine Dipstick-Ancillary (obtain specimen); Complete Time: 18:16 em1 03/10 18:15 Order name: Urine Test (obtain specimen); Complete Time: 18:16 em1 Administered Medications: 15:35 Drug: morphine 4 mg Route: IVP; Site: right antecubital; rb1 16:30 Follow up: Response: No adverse reaction; Pain is unchanged, physician notified em 15:35 Drug: Zofran 4 mg Route: IVP; Site: right antecubital; rb1 16:30 Follow up: Response: No adverse reaction em 15:35 Drug: NS 0.9% 1000 ml Route: IV; Rate: 1 bolus; Site: right antecubital; rb1 16:36 Follow up: IV Status: Completed infusion; IV Intake: 1000ml em 16:55 Drug: fentaNYL (PF) 50 mcg Route: IVP; Site: right antecubital; ss 17:19 Follow up: Response: No adverse reaction; Pain is decreased em 18:17 Not Given (Duplicate Order): fentaNYL (PF) 50 mcg IVP once em 18:28 Drug: fentaNYL (PF) 50 mcg Route: IVP; Site: right antecubital; em 19:42 Follow up: Response: No adverse reaction; Pain is decreased jb4 Disposition: 03/10/18 18:32 Hospitalization ordered by Rosy Black for Observation. Preliminary diagnosis is Abdominal and pelvic pain. - Bed requested for Telemetry/MedSurg (observation). - Status is Observation. ak1 - Condition is Fair. - Problem is new. - Symptoms have improved. UTI on Admission? No Signatures: Dispatcher [employer] EDMS Sera Stephens RN RN ajCalista Gomez RN Casa Frost MD MD [facility] [employer] [place] LVN ASSIGNMENT OFFICER Chemo [place] em1 Lorrie Santos RN RN Shital Mccarthy RN RN ak1 Tawnya Mesa, RN RN rb1 Leon Brown RN jb4 Corrections: (The following items were deleted from the chart) 19:20 18:32 Hospitalization Ordered by Rosy Black MD for Observation. Preliminary diagnosis kl is Abdominal and pelvic pain. Bed requested for Telemetry/MedSurg (observation). Status is Observation. Condition is Fair. Problem is new. Symptoms have improved. UTI on Admission? No. kdr 20:03 19:20 03/10/2018 18:32 Hospitalization Ordered by Rosy Black MD for Observation. ak1 Preliminary diagnosis is Abdominal and pelvic pain. Bed requested for Telemetry/MedSurg (observation). Status is Observation. Condition is Fair. Problem is new. Symptoms have improved. UTI on Admission? No. kl
--- NOTE | 2018-03-10 20:01 | P.HP ---
Certification for Inpatient Patient admitted to: Observation With expected LOS: <2 Midnights Practitioner: I am a practitioner with admitting privileges, knowledge of patient current condition, hospital course, and medical plan of care. Services: Services provided to patient in accordance with Admission requirements found in Title 42 Section 412.3 of the Code of Federal Regulations Patient History Date of Service: 03/10/18 Reason for admission: Abdominal pain History of Present Illness: Ms Duggan is a 63-year-old woman with previous history of diverticulitis, who started last night with left shoulder and arm pain radiated to the neck. 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 This morning she woke up with abdominal pain localized on epigastric, radiating to bilateral upper quadrant and back. The pain was quickly, 10/10 of intensity, associated with nausea and vomiting and loose stools. She denied any fever but has had some chills. Lab work remarkable for leukocytosis 12.2 K. She was afebrile in ED. CT abdomen and pelvis shows no acute abnormality. Allergies No Known Allergies Allergy (Unverified 08/23/16 02:38) Home Medications: Metronidazole 500 mg PO TID #30 tablet 08/27/16 levoFLOXacin [Levaquin] 750 mg PO DAILY #10 tab 08/27/16 - Past Medical/Surgical History Has patient received pneumonia vaccine in the past: Yes -: Diverticulitis -: choleycystectomy - Family History Family History: Reviewed- Non-Contributory - Social History Smoking Status: Never smoker Alcohol use: No CD- Drugs: No Caffeine use: Yes Place of Residence: Home Review of Systems 10-point ROS is otherwise unremarkable Physical Examination - Physical Exam General: Alert, In no apparent distress HEENT: Atraumatic, PERRLA, Mucous membr. moist/pink, EOMI, Sclerae nonicteric Neck: Supple, 2+ carotid pulse no bruit, No LAD, Without JVD or thyroid abnormality Respiratory: Clear to auscultation bilaterally, Normal air movement Cardiovascular: Regular rate/rhythm, Normal S1 S2 Gastrointestinal: Normal bowel sounds, Tenderness (Tender to palpation mostly periumbilical and epigastric area) Musculoskeletal: No tenderness Integumentary: No rashes Neurological: Normal speech, Normal strength at 5/5 x4 extr, Normal tone, Normal affect Lymphatics: No axilla or inguinal lymphadenopathy - Studies Laboratory Data (last 24 hrs) 03/10/18 15:35: PT 11.5, INR 0.97 03/10/18 15:35: Creatinine 0.90 03/10/18 15:35: WBC 12.0 H, Hgb 13.2, Hct 39.9, Plt Count 260 03/10/18 15:35: Sodium 139, Potassium 3.9, BUN 11, Creatinine 0.90, Glucose 143 H, Magnesium 2.1, Total Bilirubin 0.4, AST 22, ALT 32, Alkaline Phosphatase 113 , Lipase 142 Assessment and Plan - Problems (Diagnosis) (1) Abdominal pain Current Visit: Yes Status: Acute Qualifiers: Abdominal location: periumbilical Qualified Code(s): R10.33 - Periumbilical pain (2) Acute gastroenteritis Current Visit: Yes Status: Acute - Plan The patient will be admitted to the hospital due to abdominal pain associated with nausea and vomiting, and some loose stools episode. She has mild leukocytosis, with normal CT abdomen and pelvis. Still pending lactate and procalcitonin. At this point the most probably explanation of her symptoms acute gastroenteritis. Will continued with IV fluids and symptomatic medication for pain and nausea. Will try clear liquids so as the patient is able to tolerate oral intake. - Advance Directives Does patient have a Living Will: No Does patient have a Durable POA for Healthcare: No - Code Status/Comfort Care Code Status Assessed: Yes Code Status: Full Code
[2018-03-10] MEDS: MORPHINE 2 MG/ML SYR IV PRN (20:40)
[2018-03-10] MEDS: ONDANSETRON 4 MG/2 ML VIAL IV PRN (20:41)
[2018-03-10] MEDS: D5 0.45 NS 1,000 ML IV SCH (20:41)
[2018-03-11] MEDS: MORPHINE 2 MG/ML SYR IV PRN ×4 (00:19→20:13)
[2018-03-11] MEDS: D5 0.45 NS 1,000 ML IV SCH ×3 (05:46→23:51)
[2018-03-11] MEDS ORDERED: INFLUENZA VACCINE (for 3y+) 0.5 ML DOSE IMVAC ONE (06:00)
[2018-03-11 07:13] LABS: Absolute Lymphocytes (CBC) 1.9 K/uL (0.7-4.9); Absolute Monocytes 0.7 K/uL (0.1-1.3); Absolute Neutrophil 6.6 K/uL (1.8-8.0); Basophils % 0.2 % (0-1.3); Eosinophils % 0.1 % (0-4.4); Hematocrit 38.1 % (36.0-45.0); Lymphocytes % 20.5 % (15.3-44.8); MCV 83.5 fL (80-100); MPV 8.7 fL (7.6-11.3); Monocytes % 7.9 % (3.3-12.3); RBC Red Blood Cell Count 4.56 M/uL (3.86-4.86)
[2018-03-11 07:33] LABS: Albumin 3.5 g/dL (3.4-5.0); Bilirubin Total 0.5 mg/dL (0.2-1.0); Protein, Total 7.1 g/dL (6.4-8.2)
[2018-03-11] MEDS: ENOXAPARIN 40 MG/0.4 ML SQ SCH (08:29)
[2018-03-11] MEDS ORDERED: POTASSIUM 25 MEQ EFFERV TAB PO ONE (09:45)
[2018-03-11] MEDS ORDERED: PNEUMOCOCCAL VACCINE 0.5 ML IMVAC ONE ×2 (14:00→15:00)
[2018-03-11] MEDS: PANTOPRAZOLE 40MG TABLET PO SCH (16:22)
--- NOTE | 2018-03-11 17:35 | EKG ---
Test Date: 2018-03-10 Test Time: 15:50:48 Doors Prefitter: MARY MEASUREMENT RESULTS: Intervals: Rate: 51 [place]: 166 QRSD: 94 QT: 458 QTc: 422 [place]: P: 25 [place]: 166 QRS: 31 T: 29 INTERPRETIVE STATEMENTS: Sinus bradycardia with sinus arrhythmia Nonspecific ST abnormality Abnormal ECG No previous ECG available for comparison Electronically Signed On 03-11-18 17:33:38 CDT by Tino Rodriguez
--- NOTE | 2018-03-11 17:42 | RAD REPORT ---
EXAM DESCRIPTION: RAD - Abdomen Acute Series - 03/11/2018 3:44 pm CLINICAL HISTORY: Abdominal pain, nausea and vomiting COMPARISON: Chest film March 10, CT imaging March 10 FINDINGS: Lungs are clear. Heart size and pulmonary vasculature are normal. No pleural effusion, pne umothorax or other acute cardiopulmonary process seen. No changes from the prior day study. Bowel gas pattern is nonspecific. No bowel obstruction, free air or other acute findings. No suspicio us calcifications. No other suspicious for significant findings. IMPRESSION: Negative acute abdomen series.
[2018-03-11 19:10] LABS: Urine Appearance CLEAR; Urine Bilirubin NEGATIVE (NEG); Urine Blood TRACE (NEG); Urine Color YELLOW; Urine Glucose NEGATIVE (NEG); Urine Protein NEGATIVE (NEG); Urine Specific Gravity <=1.005 (1.005-1.030); Urine Urobilinogen 0.2 mg/dL (0.2-1.0); Urine pH 7.5 (5.0-7.0)
[2018-03-11 19:23] LABS: Urine Microscopic Reflex ORDER UMIC
--- NOTE | 2018-03-11 19:36 | PN ---
Date of Progress Note: 03/11/2018 Subjective: The patient seen and examined. Chart reviewed and case discussed with RN. The patient initially was doing better this morning; however, after trial of regular diet, the patient had some n ausea, vomiting, and had some abdominal discomfort and feeling full. No fevers or chills. Review of Systems: Negative except as above. Medications: List reviewed. Physical Examination: Vital Signs: Temperature 97.8, heart rate 67, blood pressure 131/72, respirations 20, O2 99% on room air. General: Awake, alert, oriented x3, ill-appearing female, elderly. CV: S1, S2. No murmurs. Regular rate and rhythm. Peripheral pulses present. Respiratory: Moving air well bilaterally. No wheezing or stridor. Gastrointestinal: Abdomen is soft, mildly distended. Hypoactive bowel sounds. No rebound or guardi ng. Extremities: No clubbing, cyanosis, or edema. Neurologic: Nonfocal. Laboratory Data: Sodium 135, potassium 3 recheck is 3.7, chloride 101, CO2 26, BUN 7, creatinine 0.7 , glucose 122, calcium 8.2. WBC 9.2, H and H 12.8, 38.1, platelets 247, neutrophils 71%. Assessment And Plan: A 63-year-old female with: 1.Acute generalized abdominal pain, possibly due to gastroenteritis versus ileus. The patient unabl e to tolerate solid food. Will cut back to clear liquids. Obtain abdominal series. The patient may have ileus or small-bowel obstruction. 2.Acute gastroenteritis. Diarrhea is resolved. 3.Overweight with BMI 26. 4.History of diverticulitis. 5.Hypokalemia, replaced. 6.GI and DVT prophylaxis addressed. Plan: Obtain acute abdominal series. Add Protonix. Continue antiemetics and pain medications. No signs of sepsis. Continue IV fluids, procalcitonin and lactate are negative. WBC count has normaliz ed. Urine is clear. SA/MODL Voice ID: [id number] Report ID: [id number]
[2018-03-11] MEDS: ONDANSETRON 4 MG/2 ML VIAL IV PRN (20:13)
[2018-03-11 20:32] LABS: Urine Bacteria <20 /HPF (<20); Urine Culture Reflex Order REFLEXED; Urine RBC <5 /HPF (NONE SEEN)
[2018-03-12 06:15] LABS: Potassium 3.6 mmol/L (3.5-5.1)
[2018-03-12] MEDS ORDERED: POTASSIUM 25 MEQ EFFERV TAB PO ONE (09:00)
[2018-03-12] MEDS: ENOXAPARIN 40 MG/0.4 ML SQ SCH (09:55)
[2018-03-12] MEDS: CYCLOBENZAPRINE 10 MG TAB PO SCH ×3 (09:55→20:31)
[2018-03-12] MEDS: PANTOPRAZOLE 40MG TABLET PO SCH (09:55)
[2018-03-12] MEDS: D5 0.45 NS 1,000 ML IV SCH ×2 (10:03→20:30)
[2018-03-12] MEDS: MORPHINE 2 MG/ML SYR IV PRN (18:08)
[2018-03-12] MEDS: METRONIDAZOLE 500mg IVPB 500 MG/100 ML BAG IV SCH (18:08)
--- NOTE | 2018-03-12 19:58 | PN ---
Date of Progress Note: 03/12/2018 Subjective: The patient is seen and examined. Chart reviewed, and case discussed with RN and Dr. Owen jeffery. The patient is still having some abdominal discomfort along with back pain, unable to tolera te her diet, having some nausea and dry heaving along with some episodes of small vomitus. The patie nt does report passing gas. Review of Systems: Negative except as above. Medications: List reviewed. Physical Examination: Vital signs: Temperature 97.9, heart rate 56, blood pressure 157/74, respirations 18, O2 of 96% on r oom air. General: Awake, alert, oriented x3, ill-appearing female. CV: S1, S2. Regular rate and rhythm. No murmurs. Peripheral pulses present. Respiratory: Moving air well bilaterally. No wheezing or stridor. Gastrointestinal: Abdomen is mildly distended. Tenderness to palpation. No rebound or guarding. B owel sounds are hypoactive. Extremities: No clubbing, cyanosis, or edema. Neurologic: Nonfocal. Laboratory Data: Sodium 140, potassium 3.6, chloride 106, CO2 of 27, BUN 5, creatinine 0.8, glucose 120, calcium 8.3. Acute abdominal series personally reviewed, shows negative acute abdominal series. No bowel obstruction or free air. Assessment And Plan: A 63-year-old female with: 1.Acute generalized abdominal pain, may be due to gastroenteritis versus ileus. Abdominal x-ray did not show any obstruction. Unable to tolerate even liquids. The patient still has some nausea and v omiting. The pain is still quite moderate. We will consult GI. The patient will likely need esopha gogastroduodenoscopy. 2.Acute gastroenteritis. Diarrhea, resolved. 3.Overweight, body mass index 26. 4.History of diverticulitis. No active bleeding at this time. 5.Hypokalemia, replaced. 6.Back pain and muscle spasms. The patient did some heavy lifting at her work. We will start on mu scle relaxants. 7.Gastrointestinal and deep venous thrombosis prophylaxis addressed. Continue Protonix and Lovenox. PLAN: Continue IV fluid hydration, pain medications. GI consultation. /LENA Voice ID: [id number] Report ID: [id number]
[2018-03-12] MEDS: CIPROFLOXACIN 400mg IV 400 MG/200 ML BAG IV SCH (20:30)
[2018-03-13] MEDS: METRONIDAZOLE 500mg IVPB 500 MG/100 ML BAG IV SCH ×3 (00:04→16:54)
[2018-03-13 05:13] LABS: Absolute Monocytes 0.6 K/uL (0.1-1.3); Absolute Neutrophil 4.3 K/uL (1.8-8.0); Basophils % 0.7 % (0-1.3); Eosinophils % 0.6 % (0-4.4); Hematocrit 38.5 % (36.0-45.0); MCH 28.3 pg (27.0-35.0); MCV 83.9 fL (80-100); Monocytes % 8.7 % (3.3-12.3); RBC Red Blood Cell Count 4.59 M/uL (3.86-4.86)
[2018-03-13 05:34] LABS: Albumin 3.4 g/dL (3.4-5.0); Bilirubin Total 0.4 mg/dL (0.2-1.0); Magnesium 2.1 mg/dL (1.8-2.4); Phosphorus 2.8 mg/dL (2.5-4.9); Potassium 4.1 mmol/L (3.5-5.1); Protein, Total 7.1 g/dL (6.4-8.2)
[2018-03-13] MEDS: D5 0.45 NS 1,000 ML IV SCH ×2 (07:00→16:53)
[2018-03-13] MEDS: CYCLOBENZAPRINE 10 MG TAB PO SCH ×2 (08:56→14:58)
[2018-03-13] MEDS: PANTOPRAZOLE 40MG TABLET PO SCH (08:56)
[2018-03-13] MEDS: ENOXAPARIN 40 MG/0.4 ML SQ SCH (08:57)
[2018-03-13] MEDS: CIPROFLOXACIN 400mg IV 400 MG/200 ML BAG IV SCH (11:20)
--- NOTE | 2018-03-13 11:51 | RAD REPORT ---
EXAM DESCRIPTION: RAD - Lumbar Spine 3 Views - 03/13/2018 11:44 am CLINICAL HISTORY: Back pain, radiculopathy COMPARISON: None. FINDINGS: A three-view lumbar spine examination was performed. Lumbar bodies are normal in height an d alignment. No fracture or acute bony process seen. No disc space narrowing. Mild endplate spurring changes are seen throughout the lumbar spine. Lower lumbar facet degenerative changes are present, mi ld in severity. No pars defects identified. IMPRESSION: Mild endplate degenerative spurring without acute disc or bone process. Mild facet degenerative change lumbar spine.
--- NOTE | 2018-03-13 11:54 | RAD REPORT ---
EXAM DESCRIPTION: RAD - Thoracic Spine Ap/Lat - 03/13/2018 11:44 am CLINICAL HISTORY: Back pain COMPARISON: None. FINDINGS: AP & lateral views of the thoracic spine were obtained. Thoracic bodies are normal in heig ht and AP alignment. There is a very minimal left convex curvature at the thoracolumbar junction. The re are no acute or destructive bony processes seen. No paraspinal masses are identified. Mild endplat e spurring changes are in the midthoracic spine. No disc space narrowing. IMPRESSION: Mild endplate spurring in the midthoracic spine. No acute findings noted.
--- NOTE | 2018-03-13 20:28 | P.DS ---
Admission Date: 03/12/18 Discharge Date: 03/13/18 Disposition: ROUTINE DISCHARGE Discharge Condition: GOOD Reason for Admission: Abdominal pain Consultations: GI, Dr. Pearson Brief History of Present Illness: Ms Duggan is a 63-year-old woman with previous history of diverticulitis, who started last night with left shoulder and arm pain radiated to the neck. 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 This morning she woke up with abdominal pain localized on epigastric, radiating to bilateral upper quadrant and back. The pain was quickly, 10/10 of intensity, associated with nausea and vomiting and loose stools. She denied any fever but has had some chills. Lab work remarkable for leukocytosis 12.2 K. She was afebrile in ED. CT abdomen and pelvis shows no acute abnormality. Hospital Course: Patient was admitted for abdominal pain, associated with nausea/vomiting. Her CT ab/pelvis was normal, and AXR with no obstruction. IVF was started, and she was treated symptomatically with medication for pain and nausea. Her symptoms resolved with bowel rest and at the time of discharge, she was able to tolerate a soft, GI diet without any problems. Her diarrhea/loose stool episodes had resolved. GI was consulted and no intervention was planned. She had some back pain, x-rays negative. This was most likely msk in nature as she did some heavy lifting at work. Muscle relaxants helped with her pain. She did not experience any bleeding episodes throughtout the stay. Discharged on cipro/flagyl. Vital Signs/Physical Exam: Temp Pulse Resp BP Pulse Ox 98.2 F 66 17 146/77 H 99 03/13/18 16:00 03/13/18 16:00 03/13/18 16:00 03/13/18 16:00 03/13/18 16:00 General: Alert, In no apparent distress HEENT: Atraumatic, PERRLA, EOMI Neck: Supple, JVD not distended Respiratory: Clear to auscultation bilaterally, Normal air movement Cardiovascular: Regular rate/rhythm, Normal S1 S2 Gastrointestinal: Normal bowel sounds, No tenderness Musculoskeletal: No tenderness Integumentary: No rashes Neurological: Normal speech, Normal tone, Normal affect Lymphatics: No axilla or inguinal lymphadenopathy Laboratory Data at Discharge: WBC 7.1 K/uL (4.3-10.9) D 03/13/18 04:29 Hgb 13.0 g/dL (12.0-15.0) 03/13/18 04:29 Hct 38.5 % (36.0-45.0) 03/13/18 04:29 Plt Count 247 K/uL (152-406) 03/13/18 04:29 PT 11.5 SECONDS (9.5-12.5) 03/10/18 15:35 INR 0.97 03/10/18 15:35 Sodium 141 mmol/L (136-145) 03/13/18 04:29 Potassium 4.1 mmol/L (3.5-5.1) 03/13/18 04:29 BUN 6 mg/dL (7-18) L 03/13/18 04:29 Creatinine 0.90 mg/dL (0.55-1.3) 03/13/18 04:29 Glucose 115 mg/dL (74-106) H 03/13/18 04:29 Phosphorus 2.8 mg/dL (2.5-4.9) 03/13/18 04:29 Magnesium 2.1 mg/dL (1.8-2.4) 03/13/18 04:29 Total Bilirubin 0.4 mg/dL (0.2-1.0) 03/13/18 04:29 AST 20 U/L (15-37) 03/13/18 04:29 ALT 28 U/L (12-78) 03/13/18 04:29 Alkaline Phosphatase 93 U/L (45-117) 03/13/18 04:29 Lipase 142 U/L (73-393) 03/10/18 15:35 Home Medications: Calcium Carbonate/Vitamin D3 [Super Calcium 600-Vit D3 400] 1 tab PO DAILY 03/10 Fish Oil/Dha/Epa [Fish Oil 1,200 mg Fish Oil] 1 cap PO DAILY 03/10/18 Multivit with Calcium,Iron,Min [Multiple Vitamins For Women] 1 tab PO DAILY Ciprofloxacin HCl [Cipro 500 MG Tablet] 500 mg PO BID #10 tab 03/13/18 metroNIDAZOLE [Flagyl] 500 mg PO Q8H #15 tablet 03/13/18 New Medications: Ciprofloxacin HCl [Cipro 500 MG Tablet] 500 mg PO BID #10 tab metroNIDAZOLE [Flagyl] 500 mg PO Q8H #15 tablet Patient Discharge Instructions: Please follow up with your primary care physician in 1 week. Diet: Soft Activity: Ad ashley Followup: Hiram Pearson MD [ACTIVE - CAN ADMIT] - 1-2 Weeks
== END 2018-03-13 19:45 | disposition home or self-care (01) | DRG 392 ==
LOC: ER 14:01 → ERHOLD 18:33 → 2ND 19:45 → OBSVTOIN 03-12 13:52
PROVIDERS: ADMIT Family Medicine; ATTEND Family Medicine
DX: R10.13 Epigastric pain (principal); K52.9 Noninfective gastroenteritis and colitis, unspecified; R11.2 Nausea with vomiting, unspecified
CPT/HCPCS: 36415; 71045; 72070; 72100; 74022; 74177; 80048; 80053; 80076; 81003; 81015; 81025; 83605; 83690; 83735; 83880; 84100; 84132; 84145; 84484; 85025; 85610; 87086; 87088; 90670; 93005; 94760; 96361; 96374; 96375; 99285; G0008; G0009; G0378; J0744; J1650; J2270; J2405; J3010; J7030; Q2035; Q9967